=== PATIENT | female | born 1990 | race African-American/Black ===

== ENCOUNTER 2019-10-23 21:40 | Emergency (ER) | payer SELFPAY ==
--- NOTE | 2019-10-23 22:57 | ER Document Report ---
ED Medical Screen (RME) - General Stated Complaint: VAGINAL AND SKIN DISCOMFORT Time Seen by Provider: 10/23/19 22:51 Mode of Arrival: Ambulatory Information source: Patient Notes: 29-year-old female presents with no past history reports that she is been itching for about 2 months and when she takes a shower bath there will be mites or some kind of insect floating on the water. She reports her invisible until there and water. She reports that around her vaginal area and down her legs. She reports she notices them around her feet. No rash no obvious signs of scabies noted. Reports she itches all over on her head. Denies past history. Denies fever vomiting diarrhea denies drug use. I have greeted and performed a rapid initial assessment of this patient. A comprehensive ED assessment and evaluation of the patient, analysis of test results and completion of the medical decision making process will be conducted by additional ED providers. Dictation of this chart was performed using voice recognition software; therefore, there may be some unintended grammatical errors. - Related Data Allergies/Adverse Reactions: adhesive Allergy (Verified 10/23/19 22:51) latex Allergy (Verified 10/23/19 22:51) Past Medical History - Social History Drug Abuse: Marijuana Physical Exam - Vital signs Vitals: Temp Pulse Resp BP Pulse Ox 98.0 F 106 H 20 149/85 H 95 10/23/19 21:58 10/23/19 21:58 10/23/19 21:58 10/23/19 21:58 10/23/19 21:58 Course - Vital Signs Vital signs: Temp Pulse Resp BP Pulse Ox 98.0 F 106 H 20 149/85 H 95 10/23/19 21:58 10/23/19 21:58 10/23/19 21:58 10/23/19 21:58 10/23/19 21:58
--- NOTE | 2019-10-24 02:49 | ER Document Report ---
HPI - HPI Time Seen by Provider: 10/23/19 22:51 Pain Level: 4 Context: Patient is a 29-year-old female that comes emergency department for chief complaint of itching on and off for the past few weeks. She states that she saw some flecks of something, off of her in the tub and she will see flecks, from her scalp when she scratches it, she also states that she can scratch over her legs and genitals and small dark flexible, there is well. She states she is concerned there is a bug. She denies noticing any bites, she denies any other complaints. She denies any rash. She denies fever/chills, nausea/vomiting, recreational drugs. She denies history of the same. When asked she does state that symptoms did start after she switched her detergent. She denies any daily medications. She denies . - REPRODUCTIVE Reproductive: DENIES: : Past Medical History - General Information source: Patient - Social History Smoking Status: Never Smoker Drug Abuse: Marijuana Lives with: Family Family History: Reviewed & Not Pertinent Patient has suicidal ideation: No Patient has homicidal ideation: No Surgical Hx: Negative - Immunizations Immunizations up to date: Yes Hx Diphtheria, Pertussis, Tetanus Vaccination: Yes Vertical Provider Document - CONSTITUTIONAL General Appearance: WD/WN, No Apparent Distress - HEENT HEENT: Atraumatic, Normal ENT Exam, Normocephalic - NECK Neck: Normal Inspection - RESPIRATORY Respiratory: Breath Sounds Normal, No Respiratory Distress - CARDIOVASCULAR Cardiovascular: Regular Rate, Regular Rhythm. negative: Tachycardia - GI/ABDOMEN Gastrointestinal: Abdomen Soft, Abdomen Non-Tender - BACK Back: Normal Inspection - MUSCULOSKELETAL/EXTREMETIES Musculoskeletal/Extremeties: MAEW, FROM, Non-Tender - NEURO Level of Consciousness: Awake, Alert, Appropriate Motor/Sensory: No Motor Deficit, No Sensory Deficit - DERM Integumentary: Warm, Dry, No Rash - Some scattered excoriation over the arms and legs but no bites, vesicles, hives, induration, fluctuance, or other concerning findings noted with the skin Course - Re-evaluation Re-evalutation: Patient is very concerned about possibly having a lice or crabs in the genital area. She requests exam. Physical exam was performed including pelvic exam, this shows no concerning abnormality, wet mount was unremarkable. Patient showed me small flecks that she is concerned of bugs, on closer examination these appear to be simply skin that she is scratching off. I suspect her detergent is causing her a histamine release and she is scratching as result. I do not see any signs of bites or infestation. Patient is very relieved with this information, she thanks me for examination, she she states she has no other complaints. Patient other than her preoccupation with the itching does not have any concerning psychiatric features or delusions. Will treat symptomatically. - Vital Signs Vital signs: Temp Pulse Resp BP Pulse Ox 98.0 F 106 H 20 149/85 H 95 10/23/19 21:58 10/23/19 21:58 10/23/19 21:58 10/23/19 21:58 10/23/19 21:58 Discharge - Discharge Clinical Impression: Skin pruritus Condition: Stable Disposition: HOME, SELF-CARE Additional Instructions: No concerning findings were noted, this appears to be generalized itching probably from histamine. I recommend Benadryl at night, the prescribed antihistamine daily, and probably change your soap back to what it used to be. Consider skin moisturizers as well. Follow-up with primary care for additional management. Return for any concerning symptoms including developing rash, swelling, redness, fever, or any other concerning symptoms. Prescriptions: Cetirizine HCl [All Day Allergy] 10 mg PO DAILY #30 tablet
[2019-10-24 03:02] LABS: BACTERIA (WET MOUNT) 3+ BACTERIA SEEN; EPITHELIALS (WET MOUNT) 3+ EPITHELIALS SEEN; T.VAGINALIS (WET MOUNT) NO TRICHOMONAS SEEN; WBCS (WET MOUNT) RARE WBCS SEEN; YEAST (WET MOUNT) NO YEAST SEEN
[2019-10-24 04:29] VITALS: BP 133/89
[2019-10-24 04:29] LABS: CHLAM PCR NOT DETECTED (NOT DETECT)
== END 2019-10-24 04:29 | disposition home or self-care (01) ==
LOC: ER 21:40
DX: L29.9 Pruritus, unspecified (principal); F12.10 Cannabis abuse, uncomplicated
CPT/HCPCS: 87210; 87491; 87591; 99283

== ENCOUNTER 2019-12-02 18:43 | Emergency (ER) | payer SELFPAY ==
--- NOTE | 2019-12-03 00:41 | ER Document Report ---
ED General - General Chief Complaint: Nausea/Vomiting Stated Complaint: BLOODY STOOL Time Seen by Provider: 12/02/19 21:13 Mode of Arrival: Ambulatory Information source: Patient TRAVEL OUTSIDE OF THE [place] IN LAST 30 DAYS: No - HPI Notes: Patient presents with complaints of having worms. She states that she has noticed worms in her pores. She states they come out of her nose and eyes. She also states they are in her vaginal area. She states they are in her stool. She also states that today she threw up and had worms in her vomitus. She states she is followed by her family physician for these worms. She states that her family physician took a stool sample and told her that he is waiting on the results before he prescribes any medicine for the worms. She states when she went to the office today and told them that she was throwing up worms they told her to come to the emergency department for evaluation. Patient states that the worms make her skin itch and they make her nauseous. The symptoms are intermittent. Nothing appears to make them better or worse. There is no known radiation of her symptoms. Her symptoms are apparently moderate. - Related Data Allergies/Adverse Reactions: adhesive Allergy (Verified 10/25/19 12:39) latex Allergy (Verified 10/25/19 12:39) naproxen [Naproxen] Adverse Reaction (Intermediate, Verified 10/25/19 12:39) vomiting, abdominal cramping Home Medications: bentyl. prilosec. antibiotic Past Medical History - General Information source: Patient - Social History Smoking Status: Current Every Day Smoker Frequency of alcohol use: None Drug Abuse: None Family History: Arthritis, Malignancy, Reviewed & Not Pertinent, Thyroid Disfunction Patient has suicidal ideation: No Patient has homicidal ideation: No Pulmonary Medical History: Denies: Hx Asthma Renal/ Medical History: Reports: Hx Ectopic - 2. Denies: Hx Peritoneal Dialysis GI Medical History: Reports: Hx Gastroesophageal Reflux Disease, Hx Ulcer, Hx Endoscopy Psychiatric Medical History: Reports: Hx Anxiety Denies: Hx Depression Past Surgical History: Reports: Hx Abdominal Surgery - adhesion surgery, Hx Section - 4, Hx Gynecologic Surgery - right fallopian tube removed due to ectopic, Other - bartholins masupialization, multiple I & D, Salpingectomy - Immunizations Immunizations up to date: Yes Hx Diphtheria, Pertussis, Tetanus Vaccination: Yes Review of Systems - Review of Systems Constitutional: denies: Chills, Fever Cardiovascular: denies: Chest pain, Palpitations Respiratory: denies: Cough, Short of breath Gastrointestinal: Vomiting -: Yes All other systems reviewed and negative Physical Exam - Vital signs Vitals: Temp Pulse Resp BP Pulse Ox 98.4 F 75 16 114/60 99 12/02/19 22:15 12/02/19 22:15 12/02/19 22:15 12/02/19 22:15 12/02/19 22:15 Interpretation: Normal - General General appearance: Appears well, Alert - HEENT Head: Normocephalic, Atraumatic Eyes: Normal Pupils: PERRL - Respiratory Respiratory status: No respiratory distress Chest status: Nontender Breath sounds: Normal Chest palpation: Normal - Cardiovascular Rhythm: Regular Heart sounds: Normal auscultation Murmur: No - Abdominal Inspection: Normal Distension: No distension Bowel sounds: Normal Tenderness: Nontender Organomegaly: No organomegaly - Rectal Tenderness: No Hemorrhoids: None, Other - External rectal and vaginal exam is unremarkable. There is no evidence of worms. - Back Back: Normal, Nontender - Extremities General upper extremity: Normal inspection, Nontender, Normal color, Normal ROM, Normal temperature General lower extremity: Normal inspection, Nontender, Normal color, Normal ROM, Normal temperature, Normal weight bearing. No: Lisa's sign - Neurological Neuro grossly intact: Yes Cognition: Normal Orientation: AAOx4 [place] Coma Scale Eye Opening: Spontaneous [place] Coma Scale Verbal: Oriented [place] Coma Scale Motor: Obeys Commands [place] Coma Scale Total: 15 Speech: Normal Motor strength normal: LUE, RUE, LLE, RLE Sensory: Normal - Psychological Associated symptoms: Normal affect, Normal mood - Skin Skin Temperature: Warm Skin Moisture: Dry Skin Color: Normal Course - Re-evaluation Re-evalutation: 12/03/19 00:38 Patient states that she has worms coming out of all of her pores and is now vomiting up worms. Patient has had no vomiting here and is eating Doritos in the room. Patient has an unremarkable exam and also has unremarkable vital signs and laboratories. On external rectal and vaginal exam I see no evidence of worms. Patient also states that she has worms in her eyes and nose however a detailed inspection of these areas reveal no evidence of abnormalities. I discussed tactile hallucinations with the patient but she denies that this is occurring. She has no known previous psychiatric diagnosis. I told her that I felt that maybe she was having some itching or a mild allergic reaction that was being confused with worms. I do notice that approximately a month ago she was here with itching and felt that she had "bugs". At this time I think patient will be best followed up with her primary care physician who is currently analyzing her stool. 12/03/19 00:40 - Vital Signs Vital signs: Temp Pulse Resp BP Pulse Ox 98.4 F 75 16 114/60 99 12/02/19 22:15 12/02/19 22:15 12/02/19 22:15 12/02/19 22:15 12/02/19 22:15 Discharge - Discharge Clinical Impression: Vomiting Qualifiers: Vomiting type: unspecified Vomiting Intractability: non-intractable Nausea presence: with nausea Qualified Code(s): R11.2 - Nausea with vomiting, unspecified Condition: Stable Disposition: HOME, SELF-CARE Instructions: Antinausea Medication ([facility]), Vomiting ([facility]) Additional Instructions: Please follow-up with Dr. Mason as scheduled Prescriptions: Ondansetron [Zofran Odt 4 mg Tablet] 1 - 2 tab PO Q4H PRN #15 tab.rapdis PRN Reason: For Nausea/Vomiting Referrals: MARLENA MASON PA-C [[facility]] - Follow up in 1 week
[2019-12-03 01:30] VITALS: BP 107/63
== END 2019-12-03 01:16 | disposition home or self-care (01) ==
LOC: ER 18:43
DX: R11.2 Nausea with vomiting, unspecified (principal); F17.200 Nicotine dependence, unspecified, uncomplicated
CPT/HCPCS: 99283

== ENCOUNTER 2019-12-23 19:06 | Emergency (ER) | payer SELFPAY ==
--- NOTE | 2019-12-23 22:01 | ER Document Report ---
ED Medical Screen (RME) - General Chief Complaint: Rash Stated Complaint: RASH,SHORTNESS OF BREATH Time Seen by Provider: 12/23/19 21:54 Mode of Arrival: Ambulatory Information source: Patient Notes: 29-year-old female presents with complaints that she is seeing bugs come out of her skin and her vomit. Reports she has been here before for it she reports its irritating her skin. Reports she vomited 2 days ago. Denies pain with void. Patient keeps repeating that when she washes her self she is exfoliating and she will notice these tiny bugs. Patient does have a rash irritation to her throat. She reports it is all over her body. I have greeted and performed a rapid initial assessment of this patient. A comprehensive ED assessment and evaluation of the patient, analysis of test results and completion of the medical decision making process will be conducted by additional ED providers. TRAVEL OUTSIDE OF THE [place] IN LAST 30 DAYS: No - Related Data Allergies/Adverse Reactions: adhesive Allergy (Verified 10/25/19 12:39) latex Allergy (Verified 10/25/19 12:39) naproxen [Naproxen] Adverse Reaction (Intermediate, Verified 10/25/19 12:39) vomiting, abdominal cramping Home Medications: Prilosec. Bentyl Past Medical History - Social History Chew tobacco use (# tins/day): No Frequency of alcohol use: Social Drug Abuse: Marijuana Pulmonary Medical History: Denies: Hx Asthma Renal/ Medical History: Reports: Hx Ectopic - 2. Denies: Hx Peritoneal Dialysis GI Medical History: Reports: Hx Gastroesophageal Reflux Disease, Hx Ulcer, Hx Endoscopy Psychiatric Medical History: Reports: Hx Anxiety Denies: Hx Depression Past Surgical History: Reports: Hx Abdominal Surgery - adhesion surgery, Hx Section - 4, Hx Gynecologic Surgery - right fallopian tube removed due to ectopic, Other - bartholins masupialization, multiple I & D, Salpingectomy - Immunizations Immunizations up to date: Yes Hx Diphtheria, Pertussis, Tetanus Vaccination: Yes Physical Exam - Vital signs Vitals: Temp Pulse Resp BP Pulse Ox 98.3 F 88 20 127/66 H 100 12/23/19 19:48 12/23/19 19:48 12/23/19 19:48 12/23/19 19:48 12/23/19 19:48 Course - Vital Signs Vital signs: Temp Pulse Resp BP Pulse Ox 98.3 F 88 20 127/66 H 100 12/23/19 19:48 12/23/19 19:48 12/23/19 19:48 12/23/19 19:48 12/23/19 19:48
[2019-12-23 22:57] LABS: ABSOLUTE EOSINOPHILS # (AUTO) 0.1 10^3/uL (0.0-0.6); ABSOLUTE LYMPHOCYTES (AUTO) 1.9 10^3/uL (0.5-4.7); ABSOLUTE MONOCYTES (AUTO) 0.4 10^3/uL (0.1-1.4); ABSOLUTE NEUT (AUTO) 4.8 10^3/uL (1.7-8.2); BASOPHILS % (AUTO) 0.3 % (0-2); EOSINOPHILS % (AUTO) 0.8 % (0-6); HEMATOCRIT 36.9 % (36.0-47.0); HEMOGLOBIN 12.6 g/dL (12.0-15.5); LYMPHOCYTES % (AUTO) 26.3 % (13-45); MEAN CORPUSCULAR HEMOGLOBIN 30.9 pg (27.0-33.4); MEAN CORPUSCULAR HGB CONC 34.1 g/dL (32.0-36.0); MEAN CORPUSCULAR VOLUME 91 fl (80-97); PLATELET COUNT 259 10^3/uL (150-450); RED BLOOD COUNT 4.08 10^6/uL (3.72-5.28); RED CELL DISTRIBUTION WIDTH 15.7 % (11.5-14.0); SEGMENTED NEUTROPHILS % (AUTO) 66.6 % (42-78); TOTAL CELLS COUNTED % (AUTO) 100 %; WHITE BLOOD COUNT 7.2 10^3/uL (4.0-10.5)
[2019-12-23 23:03] LABS: APPEARANCE,URINE SLIGHTLY-CLOUDY; BILIRUBIN,URINE NEGATIVE (NEGATIVE); COLOR,URINE YELLOW; GLUCOSE, URINE NEGATIVE (NEGATIVE); KETONES,URINE TRACE mg/dL (NEGATIVE); LEUKOCYTE ESTERASE,URINE NEGATIVE (NEGATIVE); NITRITE,URINE NEGATIVE (NEGATIVE); PROTEIN,URINE 30 mg/dL (NEGATIVE); URINE SPECIFIC GRAVITY 1.025
[2019-12-23 23:13] LABS: ALBUMIN 3.7 g/dL (3.5-5.0); ALKALINE PHOSPHATASE 60 U/L (38-126); ANION GAP 10 (5-19); ASPARTATE AMINO TRANSFERASE 23 U/L (14-36); BILIRUBIN,DIRECT 0.2 mg/dL (0.0-0.4); BILIRUBIN,TOTAL 0.3 mg/dL (0.2-1.3); BLOOD UREA NITROGEN 10 mg/dL (7-20); CALCIUM 9.2 mg/dL (8.4-10.2); CARBON DIOXIDE 28 mmol/L (22-30); CHLORIDE 104 mmol/L (98-107); GLUCOSE 120 mg/dL (75-110); TOTAL PROTEIN 6.8 g/dL (6.3-8.2)
[2019-12-23 23:14] LABS: ACETAMINOPHEN < 10 ug/mL (10-30); SALICYLATE < 1.0 mg/dL (2.0-20.0)
[2019-12-23 23:17] LABS: URINE AMPHETAMINES SCREEN NEGATIVE; URINE BARBITURATES SCREEN NEGATIVE; URINE BENZODIAZEPINES SCREEN UNCONFIRMED POSITIVE; URINE COCAINE SCREEN UNCONFIRMED POSITIVE; URINE MARIJUANA (THC) SCREEN UNCONFIRMED POSITIVE; URINE METHADONE SCREEN NEGATIVE; URINE PHENCYCLIDINE SCREEN NEGATIVE
[2019-12-24] MEDS ORDERED: PREDNISONE 20 MG TABLET PO ONE (01:46)
--- NOTE | 2019-12-24 02:04 | ER Document Report ---
ED General - General Chief Complaint: Rash Stated Complaint: RASH,SHORTNESS OF BREATH Time Seen by Provider: 12/23/19 21:54 Mode of Arrival: Ambulatory TRAVEL OUTSIDE OF THE [place] IN LAST 30 DAYS: No - HPI Notes: Patient is a 29-year-old female who presents the emergency department for evaluation. She states she has sores on her neck, wants him to be evaluated. She states is itching and burning at that area. The patient states that she used lice shampoo at home to treat herself. She states she believes she has had worms crawling out of her pores, other insects and bugs crawling out of her pores. She has actually been seen here in the past multiple times, stating she believes she had worms crawling out of her vagina and rectum as well. The patient admits she used a lice shampoo, is unsure how long she left it in her hair, and states that she has had the rash on her neck since then. She states she does not remember itching it, believes that she must be doing that at night. - Related Data Allergies/Adverse Reactions: adhesive Allergy (Verified 10/25/19 12:39) latex Allergy (Verified 10/25/19 12:39) naproxen [Naproxen] Adverse Reaction (Intermediate, Verified 10/25/19 12:39) vomiting, abdominal cramping Home Medications: Prilosec. Bentyl Past Medical History - General Information source: Patient - Social History Smoking Status: Current Every Day Smoker Chew tobacco use (# tins/day): No Frequency of alcohol use: Social Drug Abuse: Cocaine, Marijuana Family History: Arthritis, Malignancy, Reviewed & Not Pertinent, Thyroid Disfunction Patient has suicidal ideation: No Patient has homicidal ideation: No Pulmonary Medical History: Denies: Hx Asthma Renal/ Medical History: Reports: Hx Ectopic - 2. Denies: Hx Peritoneal Dialysis GI Medical History: Reports: Hx Gastroesophageal Reflux Disease, Hx Ulcer, Hx Endoscopy Psychiatric Medical History: Reports: Hx Anxiety Denies: Hx Depression Past Surgical History: Reports: Hx Abdominal Surgery - adhesion surgery, Hx Section - 4, Hx Gynecologic Surgery - right fallopian tube removed due to ectopic, Other - bartholins masupialization, multiple I & D, Salpingectomy - Immunizations Immunizations up to date: Yes Hx Diphtheria, Pertussis, Tetanus Vaccination: Yes Review of Systems - Review of Systems Constitutional: No symptoms reported EENT: No symptoms reported Cardiovascular: No symptoms reported Respiratory: No symptoms reported Gastrointestinal: No symptoms reported Genitourinary: See HPI Musculoskeletal: No symptoms reported Skin: See HPI Neurological/Psychological: No symptoms reported Physical Exam - Vital signs Vitals: Temp Pulse Resp BP Pulse Ox 98.3 F 88 20 127/66 H 100 12/23/19 19:48 12/23/19 19:48 12/23/19 19:48 12/23/19 19:48 12/23/19 19:48 - Notes Notes: This is a pleasant 29-year-old female who appears her stated age in no acute distress. After removal of her weight, the patient does have very short hair, no signs of insect activity or nits. Pupils are equal round, reactive to light. Oral mucosa is moist. Heart is regular rate and rhythm, lungs are clear to auscultation bilaterally. Abdomen is soft, nontender, normoactive bowel sounds. Extremities without cyanosis or clubbing. Patient is awake and alert, intermittently tearful, but cooperative with examiner. Examination of the skin yields erythema, thickening, and maculopapular rash on the entire circumference of the neck, consistent with a contact dermatitis. She has 3 open areas, all less than 2 cm, consistent with signs from excoriation. I do not appreciate any significant induration or signs of secondary infection, no purulence. Course - Re-evaluation Re-evalutation: 12/24/19 02:02 Patient presents to the emergency department for evaluation. At this point she has a clear contact dermatitis on her neck, likely from chemical exposure from her lice shampoo. She is told to please stop treating herself with these medications [id number]. 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 I explained to her that abstention from cocaine and other illicit drugs may be her most viable treatment. I did further explain, however, that she needs to follow-up with primary care. She voiced understanding to this. She was treated for her contact dermatitis with steroids. Again she was counseled on abstaining from drugs, she is to return to the ED with worsening. - Vital Signs Vital signs: Temp Pulse Resp BP Pulse Ox 98.6 F 80 16 114/75 98 12/24/19 00:58 12/24/19 00:58 12/24/19 00:58 12/24/19 00:58 12/24/19 00:58 - Laboratory Result Diagrams: 12/23/19 22:47 12/23/19 22:47 Laboratory results interpreted by me: 12/23/19 12/23/19 12/23/19 22:47 22:47 22:47 RDW 15.7 H Glucose 120 H Urine Protein 30 H Urine Ketones TRACE H Urine Urobilinogen 2.0 H Urine Ascorbic Acid 20 H Salicylates < 1.0 L Acetaminophen < 10 L Discharge - Discharge Clinical Impression: Contact dermatitis Qualifiers: Contact dermatitis type: irritant Contact dermatitis trigger: drugs in contact with skin Qualified Code(s): L24.4 - Irritant contact dermatitis due to drugs in contact with skin Condition: Stable Disposition: HOME, SELF-CARE Instructions: Contact Dermatitis ([facility]) Additional Instructions: Please take the prednisone as directed. Do not scratch the affected area. Please do not use any further treatments for lice or bugs, as there is no evidence of any sort of infestation at this time. Please abstain from using drugs. Follow-up with primary care, return to the ED with worsening.
[2019-12-24 02:31] VITALS: BP 110/71
== END 2019-12-24 02:31 | disposition home or self-care (01) ==
LOC: ER 19:06
DX: L24.4 Irritant contact dermatitis due to drugs in contact with skin (principal); F17.200 Nicotine dependence, unspecified, uncomplicated; Z91.040 Latex allergy status
CPT/HCPCS: 99283; 36415; 80307 ×3; 85025; 81025; 80053; 81001; J7512

== ENCOUNTER 2020-01-24 08:36 | Emergency (ER) | payer SELFPAY ==
[2020-01-24 08:49] VITALS: BP 105/77
--- NOTE | 2020-01-24 10:38 | ER Document Report ---
ED Medical Screen (RME) - General Chief Complaint: Psych Problem Stated Complaint: "PARASITES COMING OUT OF PORES" Time Seen by Provider: 01/24/20 10:26 Notes: HPI: 29-year-old female presenting to the emergency department stating that she believes that parasites or some other organism is coming out through her skin. Patient states when she showers she will see a film, through the skin believes it is on the scalp and in the vaginal region. States she was seen at hospital in [place] and placed on antibiotics which did not resolve the issue. Patient does admit to using cocaine and marijuana for 5 days ago. She denies other drug use. She denies history of psychiatric disorders. Patient states she has had issues like this over the last several weeks and would like to know why she has things coming out of her skin I have greeted and performed a rapid initial assessment of this patient. A comprehensive ED assessment and evaluation of the patient, analysis of test results and completion of the medical decision making process will be conducted by additional ED providers PHYSICAL EXAMINATION: GENERAL: Well-appearing, well-nourished and in no acute distress. HEAD: Atraumatic, normocephalic. EYES: sclera anicteric, conjunctiva are normal. ENT: Moist mucous membranes. NECK: Normal range of motion LUNGS: Normal work of breathing, clear to auscultation HEART: 2+ radial pulses bilaterally, regular rate and rhythm ABD: limited by positioning for exam in triage. EXTREMITIES: no pitting or edema. No cyanosis. NEUROLOGICAL: No focal neurological deficits. Moves all extremities spontaneously and on command. PSYCH: Normal mood, normal anxious. SKIN: Warm, Dry, normal turgor, several areas of dry skin are noted where patient believes that she has "parasites".. TRAVEL OUTSIDE OF THE [place] IN LAST 30 DAYS: No - Related Data Allergies/Adverse Reactions: adhesive Allergy (Verified 10/25/19 12:39) latex Allergy (Verified 10/25/19 12:39) naproxen [Naproxen] Adverse Reaction (Intermediate, Verified 10/25/19 12:39) vomiting, abdominal cramping Home Medications: Prilosec Past Medical History - Social History Frequency of alcohol use: Social Drug Abuse: Marijuana Pulmonary Medical History: Denies: Hx Asthma Renal/ Medical History: Reports: Hx Ectopic - 2. Denies: Hx Peritoneal Dialysis GI Medical History: Reports: Hx Gastroesophageal Reflux Disease, Hx Ulcer, Hx Endoscopy Psychiatric Medical History: Reports: Hx Anxiety Denies: Hx Depression Past Surgical History: Reports: Hx Abdominal Surgery - adhesion surgery, Hx Section - 4, Hx Gynecologic Surgery - right fallopian tube removed due to ectopic, Other - bartholins masupialization, multiple I & D, Salpingectomy - Immunizations Immunizations up to date: Yes Hx Diphtheria, Pertussis, Tetanus Vaccination: Yes Physical Exam - Vital signs Vitals: Temp Pulse Resp BP Pulse Ox 98.3 F 90 16 105/77 95 01/24/20 08:47 01/24/20 08:47 01/24/20 08:47 01/24/20 08:47 01/24/20 08:47 Course - Vital Signs Vital signs: Temp Pulse Resp BP Pulse Ox 98.3 F 90 16 105/77 95 01/24/20 08:47 01/24/20 08:47 01/24/20 08:47 01/24/20 08:47 01/24/20 08:47
[2020-01-24 11:17] LABS: ABSOLUTE EOSINOPHILS # (AUTO) 0.1 10^3/uL (0.0-0.6); ABSOLUTE LYMPHOCYTES (AUTO) 1.9 10^3/uL (0.5-4.7); ABSOLUTE MONOCYTES (AUTO) 0.5 10^3/uL (0.1-1.4); ABSOLUTE NEUT (AUTO) 2.5 10^3/uL (1.7-8.2); BASOPHILS % (AUTO) 0.2 % (0-2); EOSINOPHILS % (AUTO) 1.6 % (0-6); HEMOGLOBIN 12.4 g/dL (12.0-15.5); LYMPHOCYTES % (AUTO) 38.2 % (13-45); MEAN CORPUSCULAR HEMOGLOBIN 31.3 pg (27.0-33.4); MEAN CORPUSCULAR HGB CONC 34.3 g/dL (32.0-36.0); MEAN CORPUSCULAR VOLUME 91 fl (80-97); MONOCYTES % (AUTO) 9.5 % (3-13); PLATELET COUNT 318 10^3/uL (150-450); RED BLOOD COUNT 3.94 10^6/uL (3.72-5.28); RED CELL DISTRIBUTION WIDTH 15.5 % (11.5-14.0); SEGMENTED NEUTROPHILS % (AUTO) 50.5 % (42-78); TOTAL CELLS COUNTED % (AUTO) 100 %; WHITE BLOOD COUNT 4.9 10^3/uL (4.0-10.5)
[2020-01-24 11:37] LABS: ALBUMIN 3.8 g/dL (3.5-5.0); ALKALINE PHOSPHATASE 67 U/L (38-126); ANION GAP 7 (5-19); ASPARTATE AMINO TRANSFERASE 23 U/L (14-36); BILIRUBIN,TOTAL 0.3 mg/dL (0.2-1.3); BLOOD UREA NITROGEN 12 mg/dL (7-20); CALCIUM 9.1 mg/dL (8.4-10.2); CARBON DIOXIDE 28 mmol/L (22-30); CHLORIDE 104 mmol/L (98-107); GLUCOSE 91 mg/dL (75-110); POTASSIUM 4.3 mmol/L (3.6-5.0); TOTAL PROTEIN 6.8 g/dL (6.3-8.2)
[2020-01-24 11:40] LABS: ACETAMINOPHEN < 10 ug/mL (10-30); ALCOHOL < 10 mg/dL (NONE DETECTED); SALICYLATE < 1.0 mg/dL (2.0-20.0)
== END 2020-01-24 11:20 | disposition left against medical advice (07) ==
LOC: ER 08:36
DX: Z53.21 Procedure and treatment not carried out due to patient leaving prior to being seen by health care provider (principal)
CPT/HCPCS: 36415; 80053; 80307; 85025; 99281

== ENCOUNTER 2020-01-28 10:20 | Emergency (ER) | payer SELFPAY ==
[2020-01-28] MEDS ORDERED: FAMOTIDINE 20 MG TABLET PO ONE (10:58)
[2020-01-28] MEDS ORDERED: PREDNISONE 20 MG TABLET PO ONE (10:59)
--- NOTE | 2020-01-28 11:16 | ER Document Report ---
ED Medical Screen (RME) - General Chief Complaint: Skin Problem Stated Complaint: HEAD/FACE, PAIN, ITCHING Time Seen by Provider: 01/28/20 10:31 Notes: Patient is a 29-year-old female who presents emergency department stating that she is got some kind of "bug coming out of my skin." States that she feels it throughout her body. States that is coming out of her nose and her lower eyelids. Patient also states that she was living in an area that had fleas. Patient states that she is now out of that area. Patient states that she has been scratching. Exam: Scratches all over skin. Discussed this case with Dr. Yang. Dr. Yang will see the patient. I have greeted and performed a rapid initial assessment of this patient. A comprehensive ED assessment and evaluation of the patient, analysis of test results and completion of medical decision making process will be conducted by an additional ED providers. TRAVEL OUTSIDE OF THE [place] IN LAST 30 DAYS: No - Related Data Allergies/Adverse Reactions: adhesive Allergy (Verified 01/28/20 10:32) latex Allergy (Verified 01/28/20 10:32) naproxen [Naproxen] Adverse Reaction (Intermediate, Verified 01/28/20 10:32) vomiting, abdominal cramping Past Medical History - Social History Chew tobacco use (# tins/day): No Frequency of alcohol use: None Drug Abuse: None Pulmonary Medical History: Denies: Hx Asthma Renal/ Medical History: Reports: Hx Ectopic - 2. Denies: Hx Peritoneal Dialysis GI Medical History: Reports: Hx Gastroesophageal Reflux Disease, Hx Ulcer, Hx Endoscopy Psychiatric Medical History: Reports: Hx Anxiety Denies: Hx Depression Past Surgical History: Reports: Hx Abdominal Surgery - adhesion surgery, Hx Section - 4, Hx Gynecologic Surgery - right fallopian tube removed due to ectopic, Other - bartholins masupialization, multiple I & D, Salpingectomy - Immunizations Immunizations up to date: Yes Hx Diphtheria, Pertussis, Tetanus Vaccination: Yes Physical Exam - Vital signs Vitals: Temp Pulse Resp BP Pulse Ox 98.3 F 83 18 118/83 98 01/28/20 10:23 01/28/20 10:23 01/28/20 10:23 01/28/20 10:23 01/28/20 10:23 Course - Vital Signs Vital signs: Temp Pulse Resp BP Pulse Ox 98.3 F 83 18 118/83 98 01/28/20 10:23 01/28/20 10:23 01/28/20 10:23 01/28/20 10:23 01/28/20 10:23
--- NOTE | 2020-01-28 12:26 | ER Document Report ---
ED Skin Rash/Insect Bite/Abscs - General Chief Complaint: Skin Problem Stated Complaint: HEAD/FACE, PAIN, ITCHING Time Seen by Provider: 01/28/20 10:31 Mode of Arrival: Ambulatory Information source: Patient Notes: 29-year-old woman presents to the emergency department with a complaint of itching and feeling as though there is something coming out of her pores. She described it as white stringy appearing material. She states that the symptoms have been ongoing for the past month. She was seen by her primary physician and told that she may have a fungal infection. She was treated with topical and oral medications with no improvement. She has continued to have the itching and feeling as though there are small white particles coming from her eyes and nose in the inguinal groin area. She has several areas of excoriation from scratching on the neck, back, torso and groin area. TRAVEL OUTSIDE OF THE [place] IN LAST 30 DAYS: No - Related Data Allergies/Adverse Reactions: adhesive Allergy (Verified 01/28/20 10:32) latex Allergy (Verified 01/28/20 10:32) naproxen [Naproxen] Adverse Reaction (Intermediate, Verified 01/28/20 10:32) vomiting, abdominal cramping Past Medical History - Social History Smoking Status: Never Smoker Chew tobacco use (# tins/day): No Frequency of alcohol use: None Drug Abuse: None Family History: Arthritis, Malignancy, Reviewed & Not Pertinent, Thyroid Disfunction Patient has suicidal ideation: No Patient has homicidal ideation: No Pulmonary Medical History: Denies: Hx Asthma Renal/ Medical History: Reports: Hx Ectopic - 2. Denies: Hx Peritoneal Dialysis GI Medical History: Reports: Hx Gastroesophageal Reflux Disease, Hx Ulcer, Hx Endoscopy Psychiatric Medical History: Reports: Hx Anxiety Denies: Hx Depression Past Surgical History: Reports: Hx Abdominal Surgery - adhesion surgery, Hx Section - 4, Hx Gynecologic Surgery - right fallopian tube removed due to ectopic, Other - bartholins masupialization, multiple I & D, Salpingectomy - Immunizations Immunizations up to date: Yes Hx Diphtheria, Pertussis, Tetanus Vaccination: Yes Review of Systems - Review of Systems Notes: Constitutional: + Tearful. HENT: Negative for sore throat. Eyes: Negative for visual changes. Cardiovascular: Negative for chest pain. Respiratory: Negative for shortness of breath. Gastrointestinal: Negative for abdominal pain, vomiting or diarrhea. Genitourinary: Negative for dysuria. Musculoskeletal: Negative for back pain. Skin: + Pruritus, + multiple skin complaints. Neurological: + Anxious, negative for headaches, weakness or numbness. 10 point ROS negative except as marked above and in HPI. Physical Exam - Vital signs Vitals: Temp Pulse Resp BP Pulse Ox 98.3 F 83 18 118/83 98 01/28/20 10:23 01/28/20 10:01/28/20 10:01/28/20 10:01/28/20 10:23 - Notes Notes: PHYSICAL EXAMINATION: Physical Exam: General: Well-nourished well-developed 29-year-old woman in no acute distress HEENT: NC/AT, pupils equal round and reactive to light, MM moist,nares clear, oropharynx clear, airway patent Neck: supple, no adenopathy, no masses. Good range of motion Lungs: clear, no wheezing, no rales no rhonchi CVS: Regular rate and rhythm no murmur gallop or rub Abdomen: Soft, active, nontender, no masses, no hepatosplenomegaly Ext: No edema, clubbing or cyanosis. Neuro: Alert and responsive, moving all 4 extremities on command, cranial nerves intact, no focal findings Skin: Multiple areas of excoriated skin, no obvious rash, no obvious skin inf ection PSYCH: Normal mood, normal affect. Course - Re-evaluation Re-evalutation: 01/28/20 12:22 This 29-year-old woman presents to the emergency department with the complaint of itching rash and multiple skin complaints. She has been using cocaine and marijuana for some time. States that her symptoms have been worsening over the past month. She was treated for a possible fungal infection and no improvement. Exam today is remarkable for excoriations and pruritus. I have entertained the idea that she may be reacting to foreign substance in her body, she denies methamphetamine use, however is not sure what the cocaine is being cut with. I am offering her a short course of hydroxyzine and prednisone will follow-up as needed. She is encouraged to discontinue substance abuse as it may be contributing to the pruritus. - Vital Signs Vital signs: Temp Pulse Resp BP Pulse Ox 98.3 F 83 18 118/83 98 01/28/20 10:23 01/28/20 10:23 01/28/20 10:23 01/28/20 10:23 01/28/20 10:23 Discharge - Discharge Clinical Impression: Pruritus, Multiple excoriations, Substance abuse Condition: Good Disposition: HOME, SELF-CARE Additional Instructions: Please discontinue all legal substance while taking medications. Please take the medications as prescribed hydroxyzine for itching and prednisone for the reaction causing the itching. Follow-up with your doctor as needed HOME CARE INSTRUCTIONS & INFORMATION: Thank you for choosing us for your medical needs. We hope you're satisfied with the care you received. After you leave, you must properly care for your problem and, at the same time, observe its progress. Any condition can change. Some illnesses can change rapidly over hours or days. If your condition worsens, return to the Emergency Department or see your physician promptly. ABOUT YOUR X-RAYS AND EKG'S: If you had an EKG or X-rays taken, they have been read by the Emergency Physician. The X-rays and EKG's will also be read by a Radiologist or [facility] within 24 hours. If discrepancies are noted, you will be notified by telephone. Please be certain the ED has a correct telephone number & address where you can be reached. Also, realize that some fractures or abnormalities do not show up on initial X-rays. If your symptoms continue, see your physician. ABOUT YOUR LABORATORY TEST: If you had laboratory tests, the results have been reviewed by the Emergency Physician. Some test results (for example cultures) may not be available for several days. You will be contacted if any test result shows you need additional treatment. Please be certain the ED has a correct telephone number and address where you can be reached. ABOUT YOUR MEDICATIONS: You will receive instructions on how to take your medicine on the prescription label you receive. Additional information may be provided by the Pharmacy. If you have questions afterwards, call the ED for clarification or further instructions. Some prescribed medications may cause drowsiness. Do not perform tasks such as driving a car or operating machinery without consulting your Pharmacist. If you feel you need a refill of pain medication, your condition will need re-evaluation. Please do not call for a refill of any medication. ABOUT YOUR SIGNATURE: Signature of this document acknowledges to followin. Understanding that you received emergency treatment and that you may be released before al medical problems are known or treated. Please be certain the ED has a correct phone number & address where you can be reached. 2. Acknowledgement that you will arrange for follow-up care as recommended. 3. Authorization for the Emergency Physician to provide information to your follow-up Physician in order to maximize your care. AT ANY TIME, IF YOUR SYMPTOMS CHANGE SIGNIFICANTLY OR WORSEN OR YOU DEVELOP NEW SYMPTOMS, RETURN TO THE EMERGENCY DEPARTMENT IMMEDIATELY FOR RE-EVALUATION. OUR GOAL IS TO PROVIDE EXCELLENT MEDICAL CARE! WE HOPE THAT WE HAVE MET YOUR EXPECTATIONS DURING YOUR EMERGENCY DEPARTMENT VISIT AND THAT YOU FEEL YOU HAVE RECEIVED EXCELLENT CARE! Prescriptions: Prednisone [Deltasone 20 mg Tablet] 1 tab PO BID 5 Days #10 tablet Hydroxyzine Pamoate [Vistaril] 25 mg PO Q4 PRN #30 capsule PRN Reason: Itching
[2020-01-28 12:47] VITALS: BP 122/77
== END 2020-01-28 13:04 | disposition home or self-care (01) ==
LOC: ER 10:20
DX: F14.10 Cocaine abuse, uncomplicated (principal); F12.10 Cannabis abuse, uncomplicated; F19.10 Other psychoactive substance abuse, uncomplicated; T14.8XXA Other injury of unspecified body region, initial encounter; R51 Headache; L29.9 Pruritus, unspecified; R21 Rash and other nonspecific skin eruption; F41.9 Anxiety disorder, unspecified; X58.XXXA Exposure to other specified factors, initial encounter; Z88.8 Allergy status to other drugs, medicaments and biological substances
CPT/HCPCS: 99282; J7512

== ENCOUNTER 2020-03-05 14:37 | Emergency (ER) | payer SELFPAY ==
[2020-03-05 14:46] VITALS: BP 128/83
--- NOTE | 2020-03-05 15:11 | ER Document Report ---
ED Medical Screen (RME) - General Chief Complaint: Psych Problem Stated Complaint: POSSIBLE ALLERGIC REACTION Time Seen by Provider: 03/05/20 15:06 Notes: HPI: 30-year-old female presenting to the emergency department complaining of parasites coming out of her scalp, mouth, nose, vagina and anus. Patient states that this is been ongoing for several months. Patient states that she just came out of rehab for cocaine abuse 3 weeks ago but is still having the issue. She states she is taking an antifungal medication by mouth but it has not helped. No fever I have greeted and performed a rapid initial assessment of this patient. A comp rehensive ED assessment and evaluation of the patient, analysis of test results and completion of the medical decision making process will be conducted by additional ED providers PHYSICAL EXAMINATION: Limited exam as patient will likely need to be disrobed for further examination. Patient is adamant that there are parasites coming out of her scalp and skin. I saw the patient previously for similar complaint and she left the emergency department prior to finalizing evaluation as we had considered possible psychiatric issue at that time as there was nothing definitive on the skin that was noted I have greeted and performed a rapid initial assessment of this patient. A comprehensive ED assessment and evaluation of the patient, analysis of test results and completion of medical decision making process will be conducted by an additional ED providers. TRAVEL OUTSIDE OF THE [place] IN LAST 30 DAYS: No - Related Data Allergies/Adverse Reactions: adhesive Allergy (Verified 03/05/20 14:51) latex Allergy (Verified 03/05/20 14:51) naproxen [Naproxen] Adverse Reaction (Intermediate, Verified 03/05/20 14:51) vomiting, abdominal cramping Home Medications: terbinafine 250 mg daily Past Medical History - Social History Chew tobacco use (# tins/day): No Frequency of alcohol use: None Drug Abuse: Cocaine Pulmonary Medical History: Denies: Hx Asthma Renal/ Medical History: Reports: Hx Ectopic - 2. Denies: Hx Peritoneal Dialysis GI Medical History: Reports: Hx Gastroesophageal Reflux Disease, Hx Ulcer, Hx Endoscopy Psychiatric Medical History: Reports: Hx Anxiety Denies: Hx Depression Past Surgical History: Reports: Hx Abdominal Surgery - adhesion surgery, Hx Section - 4, Hx Gynecologic Surgery - right fallopian tube removed due to ectopic, Other - bartholins masupialization, multiple I & D, Salpingectomy - Immunizations Immunizations up to date: Yes Hx Diphtheria, Pertussis, Tetanus Vaccination: Yes Physical Exam - Vital signs Vitals: Temp Pulse Resp BP Pulse Ox 98.4 F 98 16 128/83 H 98 03/05/20 14:44 03/05/20 14:44 03/05/20 14:44 03/05/20 14:44 03/05/20 14:44 Course - Vital Signs Vital signs: Temp Pulse Resp BP Pulse Ox 98.4 F 98 16 128/83 H 98 03/05/20 14:44 03/05/20 14:44 03/05/20 14:44 03/05/20 14:44 03/05/20 14:44
[2020-03-05 16:32] LABS: APPEARANCE,URINE CLOUDY; BILIRUBIN,URINE NEGATIVE (NEGATIVE); COLOR,URINE AMBER; GLUCOSE, URINE NEGATIVE (NEGATIVE); KETONES,URINE TRACE mg/dL (NEGATIVE); LEUKOCYTE ESTERASE,URINE LARGE (NEGATIVE); NITRITE,URINE NEGATIVE (NEGATIVE); PROTEIN,URINE 30 mg/dL (NEGATIVE); URINE SPECIFIC GRAVITY 1.029
[2020-03-05 16:46] LABS: URINE AMPHETAMINES SCREEN NEGATIVE; URINE BENZODIAZEPINES SCREEN NEGATIVE; URINE METHADONE SCREEN NEGATIVE; URINE PHENCYCLIDINE SCREEN NEGATIVE
[2020-03-05 16:48] LABS: URINE BARBITURATES SCREEN UNCONFIRMED POSITIVE; URINE COCAINE SCREEN UNCONFIRMED POSITIVE; URINE MARIJUANA (THC) SCREEN UNCONFIRMED POSITIVE
[2020-03-05 16:59] LABS: ABSOLUTE BASOPHILS # (AUTO) 0.1 10^3/uL (0.0-0.2); ABSOLUTE LYMPHOCYTES (AUTO) 2.6 10^3/uL (0.5-4.7); ABSOLUTE MONOCYTES (AUTO) 0.6 10^3/uL (0.1-1.4); ABSOLUTE NEUT (AUTO) 3.7 10^3/uL (1.7-8.2); EOSINOPHILS % (AUTO) 0.2 % (0-6); HEMATOCRIT 42.3 % (36.0-47.0); HEMOGLOBIN 14.5 g/dL (12.0-15.5); LYMPHOCYTES % (AUTO) 37.1 % (13-45); MEAN CORPUSCULAR HEMOGLOBIN 31.3 pg (27.0-33.4); MEAN CORPUSCULAR HGB CONC 34.3 g/dL (32.0-36.0); MEAN CORPUSCULAR VOLUME 91 fl (80-97); MONOCYTES % (AUTO) 8.9 % (3-13); PLATELET COUNT 300 10^3/uL (150-450); RED BLOOD COUNT 4.64 10^6/uL (3.72-5.28); RED CELL DISTRIBUTION WIDTH 15.5 % (11.5-14.0); SEGMENTED NEUTROPHILS % (AUTO) 52.8 % (42-78); TOTAL CELLS COUNTED % (AUTO) 100 %
--- NOTE | 2020-03-05 17:10 | ER Document Report ---
ED General - General Chief Complaint: Psych Problem Stated Complaint: POSSIBLE ALLERGIC REACTION Time Seen by Provider: 03/05/20 15:06 Mode of Arrival: Ambulatory Information source: Patient Notes: 30-year-old woman presents to the emergency department with complaint of multiple white particles which come through her skin. She had complaint of "the entity" coming to her scalp however vaginal area, and sometimes all over. She states that she has some scalp pain and vaginal pain associated with the lesion. She denies itching or specific skin lesions. She has history of substance abuse and has been in rehab. Complains of pain in her scalp and vaginal area today. TRAVEL OUTSIDE OF THE [place] IN LAST 30 DAYS: No - Related Data Allergies/Adverse Reactions: adhesive Allergy (Verified 03/05/20 18:47) latex Allergy (Verified 03/05/20 18:47) naproxen [Naproxen] Adverse Reaction (Intermediate, Verified 03/05/20 18:47) vomiting, abdominal cramping Home Medications: terbinafine 250 mg daily Past Medical History - Social History Smoking Status: Current Every Day Smoker Chew tobacco use (# tins/day): No Frequency of alcohol use: None Drug Abuse: Cocaine Family History: Arthritis, Malignancy, Reviewed & Not Pertinent, Thyroid Disfunction Patient has suicidal ideation: No Patient has homicidal ideation: No Pulmonary Medical History: Denies: Hx Asthma Renal/ Medical History: Reports: Hx Ectopic - 2. Denies: Hx Peritoneal Dialysis GI Medical History: Reports: Hx Gastroesophageal Reflux Disease, Hx Ulcer, Hx Endoscopy Psychiatric Medical History: Reports: Hx Anxiety Denies: Hx Depression Past Surgical History: Reports: Hx Abdominal Surgery - adhesion surgery, Hx Section - 4, Hx Gynecologic Surgery - right fallopian tube removed due to ectopic, Other - bartholins masupialization, multiple I & D, Salpingectomy - Immunizations Immunizations up to date: Yes Hx Diphtheria, Pertussis, Tetanus Vaccination: Yes Review of Systems - Review of Systems Notes: Constitutional: Negative for fever. HENT: Negative for sore throat. Eyes: Negative for visual changes. Cardiovascular: Negative for chest pain. Respiratory: Negative for shortness of breath. Gastrointestinal: Negative for abdominal pain, vomiting or diarrhea. Genitourinary: Negative for dysuria. Musculoskeletal: Negative for back pain. Skin: + Whitish material through the pores Neurological: Negative for headaches, weakness or numbness. 10 point ROS negative except as marked above and in HPI. Physical Exam - Vital signs Vitals: Temp Pulse Resp BP Pulse Ox 98.4 F 98 16 128/83 H 98 03/05/20 14:44 03/05/20 14:44 03/05/20 14:44 03/05/20 14:44 03/05/20 14:44 - Notes Notes: PHYSICAL EXAMINATION: Physical Exam: General: Well-nourished well-developed in no acute distress HEENT: NC/AT, pupils equal round and reactive to light, MM moist,nares clear, oropharynx clear, airway patent Neck: supple, no adenopathy, no masses. Good range of motion Lungs: clear, no wheezing, no rales no rhonchi CVS: Regular rate and rhythm no murmur gallop or rub Abdomen: Soft, active, nontender, no masses, no hepatosplenomegaly Ext: No edema, clubbing or cyanosis. : Pelvic, normal external genitalia, vaginal mucosa intact with no hemorrhage or lesion, no discharge. Neuro: Alert and responsive, moving all 4 extremities on command, cranial nerves intact, no focal findings Skin: Intact no open lesions, no rash PSYCH: Normal mood, normal affect. Course - Re-evaluation Re-evalutation: 03/05/20 21:55 Patient had eloped from the emergency department prior to completion of her treatment. Findings on the wet prep suggests large amount of WBCs and bacteria and positive for yeast., urinalysis compatible with UTI. After seeing these results from written prescriptions for diclofenac and cephalexin, have encouraged staff to reach out to the patient if she was willing to come back to scrap picker the prescriptions. - Vital Signs Vital signs: Temp Pulse Resp BP Pulse Ox 98.4 F 98 16 128/83 H 98 03/05/20 14:44 03/05/20 14:44 03/05/20 14:44 03/05/20 14:44 03/05/20 14:44 - Laboratory Result Diagrams: 03/05/20 16:33 03/05/20 16:33 Laboratory results interpreted by me: 03/05/20 03/05/20 03/05/20 16:18 16:33 16:33 RDW 15.5 H Total Protein 8.3 H Urine Protein 30 H Urine Ketones TRACE H Urine Urobilinogen 2.0 H Ur Leukocyte Esterase LARGE H 03/05/20 21:58 I have reviewed laboratory data and used this information for the treatment decisions regarding the patient. Discharge - Discharge Clinical Impression: Candidal vaginitis, Polysubstance abuse Urinary tract infection Qualifiers: Urinary tract infection type: site unspecified Hematuria presence: without hematuria Qualified Code(s): N39.0 - Urinary tract infection, site not specified Condition: Good Disposition: ELOPED Instructions: Cephalexin ([facility]), Urinary Tract Infection, Child ([facility]), Vaginitis ([facility]) Prescriptions: Fluconazole 200 mg PO DAILY #5 tablet Cephalexin Monohydrate [Keflex 500 mg Capsule] 500 mg PO Q8 10 Days capsule
[2020-03-05 17:21] LABS: ALBUMIN 4.8 g/dL (3.5-5.0); ALKALINE PHOSPHATASE 64 U/L (38-126); ANION GAP 8 (5-19); ASPARTATE AMINO TRANSFERASE 21 U/L (14-36); BILIRUBIN,TOTAL 0.8 mg/dL (0.2-1.3); BLOOD UREA NITROGEN 11 mg/dL (7-20); CARBON DIOXIDE 29 mmol/L (22-30); CHLORIDE 104 mmol/L (98-107); GLUCOSE 78 mg/dL (75-110); TOTAL PROTEIN 8.3 g/dL (6.3-8.2)
[2020-03-05 17:52] LABS: T.VAGINALIS (WET MOUNT) NO TRICHOMONAS SEEN
[2020-03-05 17:53] LABS: BACTERIA (WET MOUNT) 3+ BACTERIA SEEN; RBCS (WET MOUNT) 1+ RBCS SEEN; WBCS (WET MOUNT) 2+ WBCS SEEN; YEAST (WET MOUNT) BUDDING YEAST SEEN
[2020-03-05 19:23] LABS: CHLAM PCR NOT DETECTED (NOT DETECT)
== END 2020-03-05 18:28 | disposition left against medical advice (07) ==
LOC: ER 14:37
DX: B37.3 Candidiasis of vulva and vagina (principal); N39.0 Urinary tract infection, site not specified; F14.10 Cocaine abuse, uncomplicated; F17.200 Nicotine dependence, unspecified, uncomplicated; R51 Headache; Z91.048 Other nonmedicinal substance allergy status; Z91.040 Latex allergy status; Z79.899 Other long term (current) drug therapy; Z53.29 Procedure and treatment not carried out because of patient's decision for other reasons
CPT/HCPCS: 36415; 80053; 80307; 81001; 84702; 85025; 86592; 87210; 87491; 87591; 99281

== ENCOUNTER 2020-03-05 18:30 | Emergency (ER) | payer SELFPAY ==
[2020-03-05 18:37] VITALS: BP 113/74
== END 2020-03-05 19:39 | disposition left against medical advice (07) ==
LOC: ER 18:30
DX: Z53.21 Procedure and treatment not carried out due to patient leaving prior to being seen by health care provider (principal)

== ENCOUNTER 2020-04-28 09:43 | Emergency (ER) | payer SELFPAY ==
[2020-04-28 09:53] VITALS: BP 115/63
--- NOTE | 2020-04-28 10:26 | ER Document Report ---
HPI - HPI Patient complains to provider of: Scalp itching Time Seen by Provider: 04/28/20 09:50 Onset: Other - Several months Onset/Duration: Worse Pain Level: 5 Context: Patient presents complaining of scalp itching with some drainage noted to the scalp. Patient states that she has been seen for this by an urgent care and then a computer systems manager. Patient states that area started to worsen today. Patient states when she squeezes on the scalp lesion it has some drainage. Associated Symptoms: Other - Skin lesion with drainage. denies: Fever Exacerbated by: Denies Relieved by: Denies Similar symptoms previously: Yes Recently seen / treated by doctor: No - ROS ROS below otherwise negative: Yes Systems Reviewed and Negative: Yes All other systems reviewed and negative - CONSTITUTIONAL Constitutional: DENIES: Fever, Chills - EENT EENT: DENIES: Sore Throat - NEURO Neurology: DENIES: Headache - REPRODUCTIVE Reproductive: DENIES: : - DERM Skin Color: Normal Skin Problems: Rash Past Medical History - General Information source: Patient - Social History Smoking Status: Current Every Day Smoker Frequency of alcohol use: None Drug Abuse: Marijuana Lives with: Family Family History: Arthritis, Malignancy, Reviewed & Not Pertinent, Thyroid Disfunction Patient has homicidal ideation: No Pulmonary Medical History: Denies: Hx Asthma Renal/ Medical History: Reports: Hx Ectopic - 2. Denies: Hx Peritoneal Dialysis GI Medical History: Reports: Hx Gastroesophageal Reflux Disease, Hx Ulcer, Hx Endoscopy Psychiatric Medical History: Reports: Hx Anxiety Denies: Hx Depression Past Surgical History: Reports: Hx Abdominal Surgery - adhesion surgery, Hx Section - 4, Hx Gynecologic Surgery - right fallopian tube removed due to ectopic, Other - bartholins masupialization, multiple I & D, Salpingectomy - Immunizations Immunizations up to date: Yes Hx Diphtheria, Pertussis, Tetanus Vaccination: Yes Vertical Provider Document - CONSTITUTIONAL Agree With Documented VS: Yes Exam Limitations: No Limitations General Appearance: WD/WN, No Apparent Distress - INFECTION CONTROL TRAVEL OUTSIDE OF THE [place] IN LAST 30 DAYS: No - HEENT HEENT: Atraumatic, Normocephalic Notes: Erythematous, crusted skin lesion to right parietal scalp, no fluctuance - NECK Neck: Normal Inspection, Supple. negative: Lymphadenopathy-Left, Lymphadenopathy-Right - RESPIRATORY Respiratory: Breath Sounds Normal, No Respiratory Distress - CARDIOVASCULAR Cardiovascular: Regular Rate, Regular Rhythm - BACK Back: Normal Inspection - MUSCULOSKELETAL/EXTREMETIES Musculoskeletal/Extremeties: MAEW - NEURO Level of Consciousness: Awake, Alert, Appropriate Motor/Sensory: No Motor Deficit - DERM Integumentary: Warm, Dry, Rash - Erythematous crusted skin lesion to right parietal scalp. negative: Abscess Course - Re-evaluation Re-evalutation: 04/28/20 Patient with skin lesion worrisome for impetigo. No concern for tinea capitis at this time. Patient encouraged not to pick at or scratch the skin. Return precautions discussed with patient. - Vital Signs Vital signs: Temp Pulse Resp BP Pulse Ox 98.5 F 72 16 115/63 98 04/28/20 09:51 04/28/20 09:51 04/28/20 09:51 04/28/20 09:51 04/28/20 09:51 Discharge - Discharge Clinical Impression: Impetigo Condition: Stable Disposition: HOME, SELF-CARE Instructions: Bactroban Ointment ([facility]), Cephalexin ([facility]), Impetigo ([facility]) Additional Instructions: Return immediately for any new or worsening symptoms Followup with your primary care provider, call tomorrow to make a followup appointment Prescriptions: Mupirocin [Bactroban 2% Ointment 22 gm] 1 applic TP TID #22 gm Cephalexin Monohydrate [Keflex 500 mg Capsule] 500 mg PO Q6H 5 Days #20 capsule Referrals: [facility] [Provider Group] - Follow up as needed
== END 2020-04-28 10:50 | disposition home or self-care (01) ==
LOC: ER 09:43
DX: L01.00 Impetigo, unspecified (principal); F17.200 Nicotine dependence, unspecified, uncomplicated; F12.10 Cannabis abuse, uncomplicated
CPT/HCPCS: 99282

== ENCOUNTER 2020-08-01 05:18 | Emergency (ER) | payer SELFPAY ==
[2020-08-01] MEDS ORDERED: ACETAMINOPHEN 325 MG TABLET PO ONE (05:52)
--- NOTE | 2020-08-01 06:55 | ER Document Report ---
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 No fevers. Complains now of a right forehead lump as well as to chronic draining abscesses on her scalp. No injection drug use. TRAVEL OUTSIDE OF THE [place] IN LAST 30 DAYS: No - Related Data Allergies/Adverse Reactions: adhesive Allergy (Verified 08/01/20 05:39) latex Allergy (Verified 08/01/20 05:39) naproxen [Naproxen] Adverse Reaction (Intermediate, Verified 08/01/20 05:39) vomiting, abdominal cramping Home Medications: TOPICAL MEDICATION Past Medical History - General Information source: Patient - Social History Smoking Status: Current Every Day Smoker Frequency of alcohol use: Social Drug Abuse: Cocaine, Marijuana, Prescription drugs Family History: Arthritis, Malignancy, Reviewed & Not Pertinent, Thyroid Disfunction Pulmonary Medical History: Denies: Hx Asthma Renal/ Medical History: Reports: Hx Ectopic - 2. Denies: Hx Peritoneal Dialysis GI Medical History: Reports: Hx Gastroesophageal Reflux Disease, Hx Ulcer, Hx Endoscopy Psychiatric Medical History: Reports: Hx Anxiety Denies: Hx Depression Past Surgical History: Reports: Hx Abdominal Surgery - adhesion surgery, Hx Section - 4, Hx Gynecologic Surgery - right fallopian tube removed due to ectopic, Other - bartholins masupialization, multiple I & D, Salpingectomy - Immunizations Immunizations up to date: Yes Hx Diphtheria, Pertussis, Tetanus Vaccination: Yes Review of Systems - Review of Systems Notes: REVIEW OF SYSTEMS GEN: Denies fever, chills, weight loss ENT: Denies sore throat, nasal discharge, ear pain EYES: Denies blurry vision, eye pain, discharge CV: Denies chest pain, palpitations, edema RESP: Denies cough, shortness of breath, wheezing GI: Denies abdominal pain, nausea, vomiting, diarrhea MSK: Denies joint pain/swelling, edema, SKIN: Abscesses rash drainage Ons LYMPH: Denies swollen glands/lymph nodes NEURO: Denies headache, focal weakness or numbness, dizziness PSYCH: Denies depression, suicidal or homicidal ideation PHYSICAL EXAMINATION General: No acute distress, well-nourished Head: Atraumatic, normocephalic ENT: Mouth normal, oropharynx moist, no exudates or tonsillar enlargement Eyes: Conjunctiva normal, pupils equal, lids normal Neck: No JVD, supple, no guarding CVS: Normal rate, regular rhythm, no murmurs Resp: No resp distress, equal and normal breath sounds bilaterally GI: Nondistended, soft, no tenderness to palpation, no rebound or guarding Ext: No deformities, no edema, normal range of motion in upper and lower ext Back: No CVA or midline TTP Skin: Developing abscess right forehead without fluctuance, chronic scabbed over abscesses throughout the scalp area Lymphatic: No lymphadeopathy noted Neuro: Awake, alert. Face symmetric. GCS 15. 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 No active evidence of sepsis injection drug use etc. Forehead abscess is the only acute 1 but is not ready to be drained. Will start on Bactrim mupirocin patient was given 4 bottles of Hibiclens from the ED supply and will be referred to primary care. I have discussed with the patient there likely diagnosis, aftercare plan, follow-up plans and my usual and customary return precautions. They verbalized understanding of this. - Vital Signs Vital signs: Temp Pulse Resp BP Pulse Ox 98.2 F 98 16 131/71 H 97 08/01/20 05:22 08/01/20 05:22 08/01/20 05:22 08/01/20 05:22 08/01/20 05:22 Discharge - Discharge Clinical Impression: MRSA (methicillin resistant Staphylococcus aureus) infection Condition: Good Disposition: HOME, SELF-CARE Instructions: Abscess ([facility]), MRSA Cellulitis ([facility]) Prescriptions: Sulfamethoxazole/Trimethoprim [Bactrim Ds Tablet] 2 each PO BID #28 tablet Mupirocin [Bactroban 2% Ointment 22 gm] 1 applic TP TID #1 tube Referrals: [facility] [Outside] - Follow up as needed
[2020-08-01 07:15] VITALS: BP 132/72
== END 2020-08-01 07:05 | disposition home or self-care (01) ==
LOC: ER 05:18
DX: L02.01 Cutaneous abscess of face (principal); L02.811 Cutaneous abscess of head [any part, except face]; B95.62 Methicillin resistant Staphylococcus aureus infection as the cause of diseases classified elsewhere; F17.200 Nicotine dependence, unspecified, uncomplicated; F14.10 Cocaine abuse, uncomplicated; F12.10 Cannabis abuse, uncomplicated; Z79.899 Other long term (current) drug therapy; Z91.048 Other nonmedicinal substance allergy status; Z91.040 Latex allergy status
CPT/HCPCS: 99283

== ENCOUNTER 2020-10-02 10:35 | Emergency (ER) | payer SELFPAY ==
--- NOTE | 2020-10-02 11:13 | ER Document Report ---
ED General - General Mode of Arrival: Medic Information source: Patient, Emergency Med Personnel TRAVEL OUTSIDE OF THE [place] IN LAST 30 DAYS: No <JACKI GARCIAS - Last Filed: 10/02/20 20:37> <ALEXEI CABRERA - Last Filed: 10/03/20 06:27> - General Stated Complaint: POSSIBLE OVERDOSE Time Seen by Provider: 10/02/20 10:51 Primary Care Provider: AILYN,MARAIELENA [NO LOCAL MD] - Follow up as needed Notes: Patient is a 30-year-old female presenting to the emergency department via EMS after an apparent overdose. Patient was found in her car passed out. First responders gave 1 mg of Narcan which did arouse her. Patient is sleepy on arrival but does awaken to verbal stimulation, she does follow commands and answer questions appropriately. She does report snorting heroin but does not recall how much she did or what time it was that. (JACKI GARCIAS) - Related Data Allergies/Adverse Reactions: adhesive Allergy (Verified 10/02/20 13:06) latex Allergy (Verified 10/02/20 13:06) naproxen [Naproxen] Adverse Reaction (Intermediate, Verified 10/02/20 13:06) vomiting, abdominal cramping Past Medical History - General Information source: Patient - Social History Smoking Status: Current Every Day Smoker Frequency of alcohol use: Occasional Drug Abuse: Heroin Family History: Arthritis, Malignancy, Reviewed & Not Pertinent, Thyroid Disfunction - Medical History Medical History: Negative Renal/ Medical History: Reports: Hx Ectopic - 2. Denies: Hx Peritoneal Dialysis GI Medical History: Reports: Hx Gastroesophageal Reflux Disease, Hx Ulcer, Hx Endoscopy Psychiatric Medical History: Reports: Hx Anxiety Denies: Hx Depression Past Surgical History: Reports: Hx Abdominal Surgery - adhesion surgery, Hx Section - 4, Hx Gynecologic Surgery - right fallopian tube removed due to ectopic, Other - bartholins masupialization, multiple I & D, Salpingectomy - Immunizations Immunizations up to date: Yes Hx Diphtheria, Pertussis, Tetanus Vaccination: Yes <JACKI GARCIAS - Last Filed: 10/02/20 20:37> Review of Systems - Review of Systems -: Yes ROS unobtainable due to patient's medical condition <JACKI GARCIAS - Last Filed: 10/02/20 20:37> Physical Exam <JACKI GARCIAS - Last Filed: 10/02/20 20:37> - Vital signs Vitals: Pulse Ox 99 10/02/20 13:09 - Notes Notes: PHYSICAL EXAMINATION: GENERAL: Well-appearing, well-nourished and in no acute distress. HEAD: Atraumatic, normocephalic. EYES: Pupils equal round and reactive to light, extraocular movements intact, conjunctiva are normal. ENT: Nares patent, oropharynx clear without exudates. Moist mucous membranes. NECK: Normal range of motion, supple without lymphadenopathy LUNGS: Breath sounds clear to auscultation bilaterally and equal. No wheezes rales or rhonchi. HEART: Regular rate and rhythm without murmurs ABDOMEN: Soft, nontender, nondistended abdomen. No guarding, no rebound. No masses appreciated. Female : deferred Musculoskeletal: Normal range of motion, no pitting or edema. No cyanosis. NEUROLOGICAL: Cranial nerves grossly intact. Normal speech, normal gait. Normal sensory, motor exams PSYCH: Flat affect SKIN: Warm, Dry, normal turgor, no rashes or lesions noted. (JACKI GARCIAS) Course - Laboratory Result Diagrams: 10/02/20 11:09 10/02/20 11:09 <JACKI GARCIAS - Last Filed: 10/02/20 20:37> - Laboratory Result Diagrams: 10/02/20 11:09 10/02/20 11:09 <ALEXEI CABRERA - Last Filed: 10/03/20 06:27> - Re-evaluation Re-evalutation: Patient was placed on the telemetry monitor for several hours. She has not required any additional doses of Narcan other than what she received in the field. She is still sleepy but does arouse easily. CBC and CMP are grossly unremarkable. Patient has not provided urine sample. She did sit up long enough to eat dinner and then went back to sleep. She will need to be held in the emergency department until she is sober clinically and until she has a sober ride. [facility] [place] [facility]. Patient denies any suicidal or homicidal ideation. She states she just took too much. Okay to cancel cardiac monitoring at this time. The time is 2036. (JACKI GARCIAS) 10/03/20 06:24 Patient re-evaluated. She is arousable and clinically sober. She denies any suicidal ideation. She has no complaints and vitals are stable. She is safe for discharge home with a sober ride. Patient states she will call her boyfriend to pick her up. Patient understands and is in agreement with the plan. (ALEXEI CABRERA) - Vital Signs Vital signs: Temp Pulse Resp BP Pulse Ox 97.9 F 69 16 113/82 97 10/03/20 03:42 10/03/20 03:42 10/03/20 03:42 10/03/20 03:42 10/03/20 03:42 - Laboratory Laboratory results interpreted by me: 10/02/20 10/02/20 10/02/20 11:09 11:09 20:31 RDW 14.6 H Lymph % (Auto) 50.3 H Seg Neutrophils % 36.9 L Potassium 5.1 H Urine Protein 100 H Urine Ketones TRACE H Urine Blood LARGE H Salicylates < 1.0 L Acetaminophen < 10 L Discharge <JACKI GARCIAS - Last Filed: 10/02/20 20:37> <ALEXEI CABRERA - Last Filed: 10/03/20 06:27> - Discharge Clinical Impression: Accidental heroin overdose Qualifiers: Encounter type: initial encounter Qualified Code(s): T40.1X1A - Poisoning by heroin, accidental (unintentional), initial encounter Condition: Stable Disposition: HOME, SELF-CARE Additional Instructions: You were seen today for heroin overdose. Please never use opiates of any kind. Over 130 people every day in the [place] from opiate overdoses. Do not become a statistic. You should urgently seek rehab or a similar resource. You can call 5-052-206-[facility] [place] to find local resources. Return if you have any symptoms that are concerning to you including difficulty breathing, fever, persistent vomiting, or any other symptoms that are concerning to you. Referrals: [facility] [Provider Group] - Follow up as needed
[2020-10-02 11:46] LABS: ABSOLUTE BASOPHILS # (AUTO) 0.1 10^3/uL (0.0-0.2); ABSOLUTE LYMPHOCYTES (AUTO) 2.3 10^3/uL (0.5-4.7); ABSOLUTE MONOCYTES (AUTO) 0.5 10^3/uL (0.1-1.4); ABSOLUTE NEUT (AUTO) 1.7 10^3/uL (1.7-8.2); BASOPHILS % (AUTO) 1.3 % (0-2); HEMATOCRIT 40.7 % (36.0-47.0); HEMOGLOBIN 13.7 g/dL (12.0-15.5); LYMPHOCYTES % (AUTO) 50.3 % (13-45); MEAN CORPUSCULAR HEMOGLOBIN 30.8 pg (27.0-33.4); MEAN CORPUSCULAR HGB CONC 33.8 g/dL (32.0-36.0); MEAN CORPUSCULAR VOLUME 91 fl (80-97); MONOCYTES % (AUTO) 10.5 % (3-13); PLATELET COUNT 302 10^3/uL (150-450); RED BLOOD COUNT 4.46 10^6/uL (3.72-5.28); RED CELL DISTRIBUTION WIDTH 14.6 % (11.5-14.0); SEGMENTED NEUTROPHILS % (AUTO) 36.9 % (42-78); TOTAL CELLS COUNTED % (AUTO) 100 %; WHITE BLOOD COUNT 4.5 10^3/uL (4.0-10.5)
[2020-10-02 12:11] LABS: ALBUMIN 4.1 g/dL (3.5-5.0); ALKALINE PHOSPHATASE 63 U/L (38-126); ANION GAP 7 (5-19); ASPARTATE AMINO TRANSFERASE 31 U/L (14-36); BILIRUBIN,DIRECT 0.2 mg/dL (0.0-0.4); BILIRUBIN,TOTAL 0.7 mg/dL (0.2-1.3); BLOOD UREA NITROGEN 13 mg/dL (7-20); CALCIUM 9.4 mg/dL (8.4-10.2); CARBON DIOXIDE 27 mmol/L (22-30); CHLORIDE 105 mmol/L (98-107); GLUCOSE 98 mg/dL (75-110); POTASSIUM 5.1 mmol/L (3.6-5.0); TOTAL PROTEIN 7.4 g/dL (6.3-8.2)
[2020-10-02 12:12] LABS: ACETAMINOPHEN < 10 ug/mL (10-30); ALCOHOL < 10 mg/dL (NONE DETECTED); SALICYLATE < 1.0 mg/dL (2.0-20.0)
--- NOTE | 2020-10-02 19:01 | EKG REPORT ---
SEVERITY:- NORMAL ECG - SINUS RHYTHM : Confirmed by: Rob Castellon MD 02-Oct-2020 19:00:57
[2020-10-02 21:04] LABS: APPEARANCE,URINE SLIGHTLY-CLOUDY; BILIRUBIN,URINE NEGATIVE (NEGATIVE); GLUCOSE, URINE NEGATIVE (NEGATIVE); KETONES,URINE TRACE mg/dL (NEGATIVE); LEUKOCYTE ESTERASE,URINE NEGATIVE (NEGATIVE); NITRITE,URINE NEGATIVE (NEGATIVE); PROTEIN,URINE 100 mg/dL (NEGATIVE); UROBILINOGEN,URINE NEGATIVE mg/dL (<2.0)
[2020-10-02 21:16] LABS: URINE AMPHETAMINES SCREEN NEGATIVE; URINE BARBITURATES SCREEN NEGATIVE; URINE BENZODIAZEPINES SCREEN NEGATIVE; URINE METHADONE SCREEN NEGATIVE
[2020-10-02 21:18] LABS: URINE COCAINE SCREEN UNCONFIRMED POSITIVE; URINE MARIJUANA (THC) SCREEN UNCONFIRMED POSITIVE
[2020-10-02 21:21] LABS: URINE PHENCYCLIDINE SCREEN NEGATIVE
[2020-10-02 21:23] LABS: ADD MANUAL MICROSCOPIC YES
[2020-10-02 21:24] LABS: COLOR,URINE RED; RBC,URINE TOO NUMEROUS TO CNT /HPF
[2020-10-03 03:43] VITALS: BP 113/82
== END 2020-10-03 06:31 | disposition home or self-care (01) ==
LOC: ER 10:35
DX: T40.1X1A Poisoning by heroin, accidental (unintentional), initial encounter (principal); Y92.810 Car as the place of occurrence of the external cause; F17.200 Nicotine dependence, unspecified, uncomplicated; Z91.048 Other nonmedicinal substance allergy status; Z91.040 Latex allergy status
CPT/HCPCS: 36415; 80053; 80307; 81001; 84703; 85025; 93005; 93010; 99285